=== PATIENT | female | born 1970 | race African-American/Black ===

== ENCOUNTER 2017-05-23 15:23 | Observation (INO) | payer MEDICARE ==
[2017-05-23 15:36] VITALS: BMI 38.0
--- NOTE | 2017-05-23 15:56 | PDOC ---
History of Present Illness - General History Source: Patient, Old Records Exam Limitations: No Limitations - History of Present Illness Initial Comments: 05/23/17 16:05 The patient is a 46 year old female, with a significant past medical history of anemia, fibroids, asthma, diabetes and HTN, who presents to the emergency department with chest pain, shortness of breath, nausea and generalized weakness for the last couple of days. She describes her chest pain as ranging from mild to moderate, without radiation or modifying factors. She notes that she feels drained and drowzy. She states that she has not taken her blood pressure medication today. The patient denies headache and dizziness. Denies fever, chills, vomit, diarrhea and constipation. Denies dysuria, frequency, urgency and hematuria. Allergies: Penicillin Past surgical history: None reported Social history: Alcohol use. No tobacco or drug use reported <Addy Wilks - Last Filed: 05/23/17 16:11> <Deisy Garcias - Last Filed: 05/23/17 18:18> - General Chief Complaint: Chest Pain Stated Complaint: CHEST PAIN, BLOOD SUGAR PROBLEM Past History <Addy Wilks - Last Filed: 05/23/17 16:11> - Past Medical History Anemia: Yes (FIBROIDS) Asthma: Yes Cancer: No Cardiac Disorders: No CVA: No COPD: No CHF: No Dementia: No Diabetes: Yes GI Disorders: No Disorders: No HTN: Yes Hypercholesterolemia: No Liver Disease: No Seizures: No Thyroid Disease: No - Immunization History Immunization Up to Date: Yes - Suicide/Smoking/Psychosocial Hx Smoking Status: No Smoking History: Never smoked Have you smoked in the past 12 months: No Number of Cigarettes Smoked Daily: 0 Hx Alcohol Use: No Drug/Substance Use Hx: No Substance Use Type: Alcohol Hx Substance Use Treatment: No <Deisy Garcias - Last Filed: 05/23/17 18:18> - Past Medical History Allergies/Adverse Reactions: Allergies Allergy/AdvReac Type Severity Reaction Status Date / Time Penicillins Allergy Rash Verified 05/23/17 15:32 Home Medications: Ambulatory Orders Albuterol Sulfate [Proair Hfa] 1 inh PO DAILY 01/15/13 Budesonide/Formoterol Fumarate [Symbicort 160-4.5 Mcg Inhaler] 10.2 gm IH DAILY 01/15/13 Hydralazine HCl 75 mg PO BID 01/15/13 Insulin Lispro [Humalog] 60 unit SQ BID 01/15/13 Montelukast Na [Singulair] 10 mg PO HS 01/15/13 Nifedipine [Procardia Xl] 90 mg PO DAILY 01/15/13 Aspirin [Aspirin EC] 1 tab PO DAILY 04/14/16 Atorvastatin Ca [Lipitor] 20 mg PO DAILY 04/14/16 Furosemide [Lasix -] 20 mg PO BID 04/14/16 Losartan Potassium [Cozaar] 100 mg PO DAILY 04/14/16 Metoprolol Succinate [Toprol Xl] 100 mg PO DAILY 04/14/16 Sitagliptin Phos/Metformin HCl [Janumet 50-1,000 mg Tablet] 1 each PO BID Review of Systems - Review of Systems Able to Perform ROS?: Yes Comments:: 05/23/17 16:05 GENERAL/CONSTITUTIONAL: (+) Generalized weakness. No fever or chills. HEAD, EYES, EARS, NOSE AND THROAT: No change in vision. No ear pain or discharge. No sore throat.- CARDIOVASCULAR: (+) Chest pain and shortness of breath RESPIRATORY: No cough, wheezing, or hemoptysis. GASTROINTESTINAL: (+) Nausea. No vomiting, diarrhea or constipation. GENITOURINARY: No dysuria, frequency, or change in urination. MUSCULOSKELETAL: No joint or muscle swelling or pain. No neck or back pain. SKIN: No rash NEUROLOGIC: No headache, vertigo, loss of consciousness, or change in strength/ sensation. ENDOCRINE: No increased thirst. No abnormal weight change HEMATOLOGIC/LYMPHATIC: No anemia, easy bleeding, or history of blood clots. ALLERGIC/IMMUNOLOGIC: No hives or skin allergy. <Addy Wilks - Last Filed: 05/23/17 16:11> *Physical Exam - Vital Signs Last Vital Signs Temp Pulse Resp BP Pulse Ox 98.1 F 80 20 208/108 99 05/23/17 15:33 05/23/17 15:33 05/23/17 15:33 05/23/17 15:33 05/23/17 15:33 - Physical Exam Comments: 05/23/17 16:06 GENERAL: Awake, alert, and fully oriented, in no acute distress. (+) Obese. HEAD: No signs of trauma, normocephalic, atraumatic EYES: PERRLA, EOMI, sclera anicteric, conjunctiva clear ENT: Auricles normal inspection, hearing grossly normal, nares patent, oropharynx clear without exudates. Moist mucosa NECK: Normal ROM, supple, no lymphadenopathy, JVD, or masses LUNGS: No distress, speaks full sentences, clear to auscultation bilaterally HEART: Regular rate and rhythm, normal S1 and S2, no murmurs, rubs or gallops, peripheral pulses normal and equal bilaterally. ABDOMEN: Soft, nontender, normoactive bowel sounds. Non distended. No guarding , no rebound. No masses EXTREMITIES : Normal inspection, Normal range of motion, no edema. No clubbing or cyanosis. NEUROLOGICAL: Cranial nerves II through XII grossly intact. AO X 3. Normal speech, normal gait, no focal sensorimotor deficits SKIN: Warm, Dry, normal turgor, no rashes or lesions noted. <Addy Wilks - Last Filed: 05/23/17 16:11> - Vital Signs Last Vital Signs Temp Pulse Resp BP Pulse Ox 98.1 F 80 20 208/108 99 05/23/17 15:33 05/23/17 15:33 05/23/17 15:33 05/23/17 15:33 05/23/17 15:33 <Deisy Garcias - Last Filed: 05/23/17 18:18> ED Treatment Course - LABORATORY CBC & Chemistry Diagram: 05/23/17 16:18 05/23/17 16:18 <Deisy Garcias - Last Filed: 05/23/17 18:18> Medical Decision Making - Medical Decision Making 05/23/17 18:06 Pt presents to the ED complaining of a two day history of non specific malaise and substernal, intermittent, non exertional chest pain. Multiple risk factors for cardiovascular disease--HEART score of 4. Initial concern for anemia or hypothyroidism, but labs are negative. Troponin is negative. Will admit to medicine for rule out ACS. <Deisy Garcias - Last Filed: 05/23/17 18:18> *DC/Admit/Observation/Transfer - Attestations Scribe Attestion: 05/23/17 16:06 Documentation prepared by Addy Wilks, acting as manager medical device for Deisy Garcias MD <Addy Wilks - Last Filed: 05/23/17 16:11> - Discharge Dispostion Admit: Yes Decision to Admit order Date/Time: 05/23/17 18:18 <Deisy Garcias - Last Filed: 05/23/17 18:18> Diagnosis at time of Disposition: Chest pain Qualifiers: Chest pain type: other chest pain Qualified Code(s): R07.89 - Other chest pain ; R07.8 - Other chest pain - Discharge Dispostion Disposition: HOME Condition at time of disposition: Good - Referrals Referrals: Florentino Sauceda MD [Primary Care Provider] -
[2017-05-23] MEDS ORDERED: NIFEdipine E.R. 90 MG TABLET (FP) PO ONE (16:20)
[2017-05-23 16:35] LABS: BASOPHIL 0.5 % (0-2.0); EOSINOPHIL 0.7 % (0-4.5); MCH 25.3 pg (25.7-33.7); MCHC 33.2 g/dl (32.0-36.0); MEAN CELL VOLUME 76.3 fl (80-96); MEAN PLT VOLUME 8.4 fl (7.5-11.1); NEUTROPHILS 76.2 % (42.8-82.8); PLATELET COUNT 308 K/MM3 (134-434); RDW 17.1 % (11.6-15.6); WHITE BLOOD COUNT 6.2 K/mm3 (4.0-10.0)
[2017-05-23 16:39] LABS: URINE APPEARANCE SLCLOUDY; URINE BILIRUBIN NEGATIVE (NEGATIVE); URINE BLOOD 3+ (NEGATIVE); URINE COLOR YELLOW; URINE GLUCOSE (UA) 3+ (NEGATIVE); URINE KETONE NEGATIVE (NEGATIVE); URINE LEUK ESTERASE NEGATIVE (NEGATIVE); URINE NITRITE NEGATIVE (NEGATIVE); URINE UROBILINOGEN NEGATIVE mg/dL (0.2-1.0)
[2017-05-23 16:42] LABS: URINE PROTEIN 2+ (NEGATIVE)
[2017-05-23 17:02] LABS: URINE RBC 1054 /hpf (0-3); URINE WBC 8 /hpf (3-5)
[2017-05-23 17:19] LABS: ALBUMIN 3.5 g/dl (3.4-5.0); ANION GAP 7 (8-16); BILIRUBIN,TOTAL 0.7 mg/dL (0.2-1.0); CALCIUM 8.8 mg/dL (8.5-10.1); CO2 28 mmol/L (21-32); CREATININE 1.2 mg/dL (0.55-1.02); GLUCOSE,RANDOM 247 mg/dL (74-106); SGOT/AST 13 U/L (15-37); SGPT/ALT 23 U/L (12-78); TOT PROT 8.1 g/dl (6.4-8.2)
[2017-05-23 17:28] LABS: ALK PHOS 111 U/L (45-117); CPK 124 IU/L (26-192); THYROID STIMULATING HORMONE 0.57 uIU/ml (0.358-3.74); TROPONIN I 0.02 ng/ml (0.00-0.05)
[2017-05-23] MEDS ORDERED: ASPIRIN 81 MG CHEWABLE TABLETS PO ONE (17:50)
[2017-05-23] MEDS ORDERED: ASPIRIN 81 MG CHEWABLE TABLETS ONE (18:04)
[2017-05-23] MEDS ORDERED: hydrALAZINE HCL 20 MG/ML VIAL IVPUSH ONE (18:56)
[2017-05-23] MEDS ORDERED: hydrALAZINE HCL 20 MG/ML VIAL ONE (19:00)
[2017-05-23] MEDS ORDERED: POTASSIUM CHLORIDE TABS 20 MEQ TABLET.ER (FP) PO ONE ×2 (20:14→20:20)
[2017-05-23] MEDS ORDERED: NITROGLYCERIN SUBLINGUAL 1/150 0.4 MG TAB SL ONE (20:26)
[2017-05-23] MEDS ORDERED: NITROGLYCERIN SUBLINGUAL 1/150 0.4 MG TAB ONE (20:30)
[2017-05-23] MEDS ORDERED: NITROGLYCERIN 2% OINTMENT - 1GM PACKET TD ONE ×2 (21:11)
--- NOTE | 2017-05-24 02:36 | HP ---
Admitting History and Physical - Admission History of Present Illness: Pt is a 46 y/o morbidly obese female w/ PMH significant for anemia, fibroids, asthma, diabetes and HTN. Pt presented to the ER w/ multiple complaints including chest pain wc was substernal and nonradiating. She has been having this chest pain for the past 4-5 days and it is intermittent and only lasting mimnutes. Pt also c/o SOB and just not feeling right for the past week. This has been associated w/ nausea and generalized weakness. She reports feeling drowsy. Pt did not take any of her antihypertensives today. History Source: Patient, Medical Record - Past Medical History Cardiovascular: Yes: HTN Pulmonary: Yes: Asthma, Sleep Apnea ...LMP: 03/20/16 Heme/Onc: Yes: Anemia Endocrine: Yes: Diabetes Mellitus - Past Surgical History Past Surgical History: Yes: None - Smoking History Smoking history: Never smoked Have you smoked in the past 12 months: No Aproximately how many cigarettes per day: 0 - Alcohol/Substance Use Hx Alcohol Use: No Home Medications - Allergies Allergies/Adverse Reactions: Allergies Allergy/AdvReac Type Severity Reaction Status Date / Time Penicillins Allergy Rash Verified 05/23/17 15:32 - Home Medications Home Medications: Ambulatory Orders Albuterol Sulfate [Proair Hfa] 1 inh PO DAILY 01/15/13 Budesonide/Formoterol Fumarate [Symbicort 160-4.5 Mcg Inhaler] 10.2 gm IH DAILY 01/15/13 Hydralazine HCl 75 mg PO BID 01/15/13 Montelukast Na [Singulair] 10 mg PO HS 01/15/13 Nifedipine [Procardia Xl] 90 mg PO DAILY 01/15/13 Aspirin [Aspirin EC] 1 tab PO DAILY 04/14/16 Atorvastatin Ca [Lipitor] 20 mg PO DAILY 04/14/16 Furosemide [Lasix -] 20 mg PO BID 04/14/16 Losartan Potassium [Cozaar] 100 mg PO DAILY 04/14/16 Metoprolol Succinate [Toprol Xl] 100 mg PO DAILY 04/14/16 Sitagliptin Phos/Metformin HCl [Janumet 50-1,000 mg Tablet] 1 each PO BID Baclofen 10 mg PO DAILY 05/24/17 Medroxyprogesterone Acetate 10 mg PO DAILY 05/24/17 Novolog Mix 70-30 Flexpen Syrn 30 units SQ BIDAC 05/24/17 Family Disease History - Family Disease History Family History: Unremarkable Review of Systems - Review of Systems Constitutional: reports: Lethargy Eyes: reports: No Symptoms HENT: reports: No Symptoms Neck: reports: No Symptoms Cardiovascular: reports: Chest Pain, Shortness of Breath Respiratory: reports: SOB Gastrointestinal: reports: Nausea Genitourinary: reports: No Symptoms Physical Examination Vital Signs: Vital Signs Temperature 99.1 F 05/24/17 02:15 Pulse Rate 92 H 05/24/17 02:15 Respiratory Rate 20 05/24/17 02:15 Blood Pressure 165/89 05/24/17 02:15 O2 Sat by Pulse Oximetry (%) 100 05/23/17 18:56 Constitutional: Yes: Well Nourished Eyes: Yes: WNL HENT: Yes: WNL Neck: Yes: WNL, Supple Cardiovascular: Yes: WNL, Regular Rate and Rhythm, Murmur Respiratory: Yes: WNL Gastrointestinal: Yes: WNL, Normal Bowel Sounds, Soft, Abdomen, Obese Extremities: Yes: WNL Edema: No Problem List - Problems (1) Chest pain Assessment/Plan: Check echo Serial cpk/troponin to r/o ACS As per cardio Code(s): R07.9 - CHEST PAIN, UNSPECIFIED Qualifiers: Chest pain type: other chest pain Qualified Code(s): R07.89 - Other chest pain; R07.89 - Other chest pain; R07.8 - Other chest pain (2) HTN (hypertension) Assessment/Plan: Accelerated HTN Cont hydralzaine/losartan/lasix/procardia/toprol Check echo W/U for TRACEE/pheochromacytoma as outpt Code(s): I10 - ESSENTIAL (PRIMARY) HYPERTENSION (3) HLD (hyperlipidemia) Assessment/Plan: Cont lipitor Code(s): E78.5 - HYPERLIPIDEMIA, UNSPECIFIED (4) Anemia Assessment/Plan: Monitor H/H Code(s): D64.9 - ANEMIA, UNSPECIFIED (5) Diabetes Assessment/Plan: Cont metformin/januvia Code(s): E11.9 - TYPE 2 DIABETES MELLITUS WITHOUT COMPLICATIONS (6) Asthma Assessment/Plan: Cont symbicort/singulair Code(s): J45.909 - UNSPECIFIED ASTHMA, UNCOMPLICATED
[2017-05-24] MEDS: ACETAMINOPHEN 325 MG TABLET (FP) PO PRN ×2 (02:46→17:28)
[2017-05-24] MEDS: FUROSEMIDE 20 MG TABLET (FP) PO SCH ×2 (06:08→13:59)
[2017-05-24] MEDS: metFORMIN HCL 500 MG TABLET (FP) PO SCH ×2 (06:09→17:26)
[2017-05-24] MEDS: sitaGLIPtin PHOSPHATE 50 MG TABLET PO SCH ×2 (06:09→17:27)
[2017-05-24] MEDS ORDERED: INSULIN (NOVOLOG) ASPART 100 UNITS/ML 10ML VIAL SQ SCH (07:00)
--- NOTE | 2017-05-24 07:00 | CON.CARD ---
Cardiology Consult (text) - Consultation Consultation Note: Cardiology Consult 46F with chronic difficult to control HTN (- secondary work up for TRACEE), chronic diastolic CHF, LAYNE, DM presents to ER with 1 week of fatigue and weakness and substernal sharp CP intermittently, non-exertional. Denies SOB. No edema or PND. Started feeling tired and weak around one week ago, last Thursday. Thursday stopped taking all he BP meds due to fatigue and then began having headaches and chest discomfort. No fever, chills. Denies cough. Over last 6 months has been excellent w/ outpatient f/u and BP med compliance. PMH: as above ALL: PCN MEDS at home: Novolog [id number] TID ASA 81mf daily Invokana Toprol XL 100mg daily Lasix 20mg daily Lipitor 20mg daily Procardia Xl 90mg daily FH: Non-contrib SH: Nonsmoker EXAM: Alert, oriented Nonfocal neuro exam CV: S1,2 RRR Chest : CTA b/l Abd: soft, no bruits Ext: No edema DATA: ECG: NSR 80bpm, QT 485ms TELE: NSR CXR: Cardiomegaly , no infiltrates Head CT and echo pending Selected Entries 05/23/17 05/24/17 21:35 06:43 Temperature 99.8 F H Pulse Rate 84 Blood Pressure 157/85 Blood Pressure 191/97 [Right Arm] LABS: Laboratory Tests 05/23/17 05/23/17 05/24/17 16:18 16:40 05:25 WBC 7.7 Hgb 13.2 Plt Count 321 Sodium Potassium Creatinine AST ALT Alkaline Phosphatase TSH 0.57 Acetone, Qual Negative L 05/24/17 05:25 WBC Hgb Plt Count Sodium 135 L Potassium 3.4 L Creatinine 0.9 D AST 10 L D ALT 20 Alkaline Phosphatase 102 TSH Acetone, Qual IMP: Chronic HTN, now with accelerated HTN in setting one week med non-adherence Hypertensive heart dz Atypical CP REC: 1. Resume usual home meds 2. Echo 3. Replete electrolytes 4. Outpatient pheo eval 5. Will review office records to see when last ischemic eval was performed, if not recently would perform prior to d/c.
[2017-05-24 07:09] LABS: BASOPHIL 0.4 % (0-2.0); EOSINOPHIL 0.9 % (0-4.5); MCH 25.3 pg (25.7-33.7); MCHC 33.5 g/dl (32.0-36.0); MEAN CELL VOLUME 75.6 fl (80-96); MEAN PLT VOLUME 8.4 fl (7.5-11.1); NEUTROPHILS 72.4 % (42.8-82.8); PLATELET COUNT 321 K/MM3 (134-434); RDW 17.5 % (11.6-15.6); WHITE BLOOD COUNT 7.7 K/mm3 (4.0-10.0)
[2017-05-24 07:37] LABS: ALBUMIN 3.4 g/dl (3.4-5.0); ALK PHOS 102 U/L (45-117); ANION GAP 8 (8-16); BILIRUBIN,TOTAL 0.6 mg/dL (0.2-1.0); CALCIUM 8.9 mg/dL (8.5-10.1); CO2 27 mmol/L (21-32); CREATININE 0.9 mg/dL (0.55-1.02); GLUCOSE,RANDOM 216 mg/dL (74-106); SGOT/AST 10 U/L (15-37); SGPT/ALT 20 U/L (12-78); TOT PROT 7.5 g/dl (6.4-8.2)
[2017-05-24 09:16] LABS: CPK 100 IU/L (26-192); TROPONIN I 0.02 ng/ml (0.00-0.05)
[2017-05-24] MEDS: hydrALAZINE HCL 25 MG TABLET (FP) PO SCH ×2 (09:22→21:28)
[2017-05-24] MEDS: HEPARIN NA (PORCINE) 5,000 UNITS/ML 1ML VIAL SQ SCH ×2 (09:23→21:26)
[2017-05-24] MEDS: ASPIRIN COATED 81 MG TABLET.EC PO SCH (09:23)
[2017-05-24] MEDS: LOSARTAN POTASSIUM 50 MG TABLET (FP) PO SCH (09:23)
[2017-05-24] MEDS: METOPROLOL SUCCINATE 100 MG TAB.SR.24H (FP) PO SCH (09:23)
[2017-05-24] MEDS: NIFEdipine E.R. 90 MG TABLET (FP) PO SCH (09:23)
[2017-05-24] MEDS: BUDESONIDE/FORMETEROL FUMARATE 160/4.5 mcg INHALER IH SCH (09:23)
[2017-05-24] MEDS ORDERED: POTASSIUM CHLORIDE TABS 20 MEQ TABLET.ER (FP) PO ONE (09:30)
[2017-05-24] MEDS ORDERED: ATORVASTATIN CA 20 MG TABLET (FP) PO SCH (10:00)
[2017-05-24] MEDS ORDERED: hydrALAZINE HCL 25 MG TABLET (FP) PO SCH (10:00)
[2017-05-24] MEDS ORDERED: PATIENT'S OWN MEDICATION (NON-FORMULARY) (Sitagliptin Phos/Metformin Hcl [Janumet 50-1,000 PO SCH (10:00)
--- NOTE | 2017-05-24 20:40 | EKG ---
Test Reason : Blood Pressure : / mmHG Vent. Rate : 086 BPM Atrial Rate : 086 BPM P-R Int : 160 ms QRS Dur : 090 ms QT Int : 398 ms P-R-T Axes : 059 050 012 degrees QTc Int : 476 ms NORMAL SINUS RHYTHM POSSIBLE LEFT ATRIAL ENLARGEMENT PROLONGED QT BORDERLINE ECG WHEN COMPARED WITH ECG OF 23-MAY-2017 15:35, NO SIGNIFICANT CHANGE WAS FOUND Confirmed by JAMIE BARRERA MD ([id number]) on 05/24/2017 8:40:02 PM Referred By: NATALIA TERESA Confirmed By:JAMIE BARRERA MD
[2017-05-24] MEDS: MONTELUKAST NA 10 MG TABLET PO SCH (21:27)
[2017-05-24] MEDS: ATORVASTATIN CA 20 MG TABLET (FP) PO SCH (21:27)
[2017-05-25] MEDS ORDERED: POTASSIUM CHLORIDE TABS 20 MEQ TABLET.ER (FP) PO ONE (00:35)
[2017-05-25] MEDS: metFORMIN HCL 500 MG TABLET (FP) PO SCH ×2 (06:07→17:36)
[2017-05-25] MEDS: FUROSEMIDE 20 MG TABLET (FP) PO SCH ×2 (06:08→14:36)
[2017-05-25] MEDS: sitaGLIPtin PHOSPHATE 50 MG TABLET PO SCH ×2 (06:19→17:36)
[2017-05-25 06:55] LABS: BASOPHIL 0.8 % (0-2.0); EOSINOPHIL 1.9 % (0-4.5); MCH 25.2 pg (25.7-33.7); MCHC 33.2 g/dl (32.0-36.0); MEAN PLT VOLUME 8.6 fl (7.5-11.1); NEUTROPHILS 60.7 % (42.8-82.8); PLATELET COUNT 361 K/MM3 (134-434); RDW 17.4 % (11.6-15.6); WHITE BLOOD COUNT 6.8 K/mm3 (4.0-10.0)
[2017-05-25 07:02] LABS: ALBUMIN 3.3 g/dl (3.4-5.0); ALK PHOS 101 U/L (45-117); ANION GAP 8 (8-16); BILIRUBIN,TOTAL 0.5 mg/dL (0.2-1.0); CO2 28 mmol/L (21-32); CREATININE 1.3 mg/dL (0.55-1.02); GLUCOSE,RANDOM 185 mg/dL (74-106); SGOT/AST 12 U/L (15-37); SGPT/ALT 21 U/L (12-78); TOT PROT 7.5 g/dl (6.4-8.2)
[2017-05-25 09:03] LABS: CHOLESTEROL 202 mg/dl
[2017-05-25] MEDS: hydrALAZINE HCL 25 MG TABLET (FP) PO SCH ×2 (09:26→22:18)
[2017-05-25] MEDS: METOPROLOL SUCCINATE 100 MG TAB.SR.24H (FP) PO SCH ×2 (09:26→14:35)
[2017-05-25] MEDS: NIFEdipine E.R. 90 MG TABLET (FP) PO SCH ×2 (09:26→14:35)
[2017-05-25] MEDS: HEPARIN NA (PORCINE) 5,000 UNITS/ML 1ML VIAL SQ SCH ×2 (09:26→22:18)
[2017-05-25] MEDS: LOSARTAN POTASSIUM 50 MG TABLET (FP) PO SCH ×2 (09:26→14:36)
[2017-05-25] MEDS: ASPIRIN COATED 81 MG TABLET.EC PO SCH ×2 (09:26→14:36)
[2017-05-25] MEDS: BUDESONIDE/FORMETEROL FUMARATE 160/4.5 mcg INHALER IH SCH (09:26)
--- NOTE | 2017-05-25 09:57 | PN ---
Progress Note, Physician History of Present Illness: seen and examined today in nad. no overnight events. no new complaints. - Current Medication List Current Medications: Active Medications Acetaminophen (Tylenol -) 650 mg PO Q6H PRN PRN Reason: PAIN Last Admin: 05/24/17 17:28 Dose: 650 mg Aspirin (Ecotrin -) 81 mg PO DAILY [facility] Last Admin: 05/25/17 09:26 Dose: Not Given Atorvastatin Calcium (Lipitor -) 20 mg PO HS [facility] Last Admin: 05/24/17 21:27 Dose: 20 mg Budesonide/Formoterol Fumarate (Symbicort 160/4.5mcg -) 1 puff IH DAILY [facility] Last Admin: 05/25/17 09:26 Dose: Not Given Furosemide (Lasix -) 20 mg PO BIDLASIX [facility] Last Admin: 05/25/17 06:08 Dose: Not Given Heparin Sodium (Porcine) (Heparin -) 5,000 unit SQ BID [facility] Last Admin: 05/25/17 09:26 Dose: Not Given Hydralazine HCl (Apresoline -) 75 mg PO BID [facility] Last Admin: 05/25/17 09:26 Dose: Not Given Dipyridamole 50 mg/ Dextrose 50 mls @ 750 mls/hr IVPB ONCE ONE Stop: 05/25/17 10:03 Losartan Potassium (Cozaar -) 100 mg PO DAILY [facility] Last Admin: 05/25/17 09:26 Dose: Not Given Metformin HCl (Glucophage -) 1,000 mg PO BID@0700,1630 [facility] Last Admin: 05/25/17 06:07 Dose: Not Given Metoprolol Succinate (Toprol Xl -) 100 mg PO DAILY [facility] Last Admin: 05/25/17 09:26 Dose: Not Given Montelukast Sodium (Singulair -) 10 mg PO HS [facility] Last Admin: 05/24/17 21:27 Dose: 10 mg Nifedipine (Procardia Xl -) 90 mg PO DAILY [facility] Last Admin: 05/25/17 09:26 Dose: Not Given Sitagliptin Phosphate (Januvia -) 50 mg PO BID@0700,1630 [facility] Last Admin: 05/25/17 06:19 Dose: Not Given - Objective Vital Signs: Vital Signs Temperature 98.3 F 05/25/17 05:56 Pulse Rate 82 05/25/17 05:56 Respiratory Rate 20 05/25/17 05:56 Blood Pressure 151/72 05/25/17 05:56 O2 Sat by Pulse Oximetry (%) 97 05/25/17 02:00 Constitutional: Yes: Well Nourished, No Distress, Calm Eyes: Yes: WNL, Conjunctiva Clear, EOM Intact, PERRL HENT: Yes: WNL, Atraumatic, Normocephalic Neck: Yes: WNL, Supple, Trachea Midline Cardiovascular: Yes: WNL, Regular Rate and Rhythm, S1, S2. No: Bradycardia, Tachycardia, Pulse Irregular, Bruit, JVD, Gallop, Murmur, Rub, S3, S4, Varicosities Respiratory: Yes: WNL, Regular, CTA Bilaterally. No: Rales, Rhonchi, Wheezes Gastrointestinal: Yes: WNL, Normal Bowel Sounds, Soft. No: Distention, Tenderness Musculoskeletal: Yes: WNL Extremities: Yes: WNL Edema: No Peripheral Pulses WNL: Yes Peripheral Pulses: Left Doralis Pedis: 2+, Right Dorsalis Pedis: 2+ Integumentary: Yes: WNL Neurological: Yes: Alert, Oriented Psychiatric: Yes: Alert, Oriented Labs: CBC, BMP 05/25/17 06:20 05/25/17 06:20 - ....Imaging Chest X-ray: Report Reviewed, Image Reviewed EKG: Report Reviewed, Image Reviewed Other: Report Reviewed, Image Reviewed (tele-nsr, sinus tach, no sig arrhythmias ) Assessment/Plan Chronic HTN, severely uncontrolled on admission in setting of one week of medication non-adherence Hypertensive heart dz Atypical CP Hypokalemia Prolonged QTc REC: -Blood pressure improved after resuming home meds, still above senior living goal but adequate for now -Cont home HTN meds and plan for further evaluation and adjustment as needed -F/up echo today -f/up repeat EKG for QTc after K repleted -f/up nuclear stress test today -outpatient evaluation for secondary causes of HTN -If BP remains adequately controlled and there are no sig abnl on echo or stress test then pt would be acceptable for discharge home this afternoon with close outpatient f/up ideally this week
[2017-05-25] MEDS ORDERED: DIPYRIDAMOLE STRESS TEST 50 MG in DEXTROSE 5%-WATER - 40 ML IVPB ONE (10:00)
[2017-05-25] MEDS ORDERED: AMINOPHYLLINE 250 MG/10 ML VIAL IVPUSH ONE ×2 (13:34→15:15)
--- NOTE | 2017-05-25 20:00 | PN ---
Progress Note, Physician - Current Medication List Current Medications: Active Medications Acetaminophen (Tylenol -) 650 mg PO Q6H PRN PRN Reason: PAIN Last Admin: 05/24/17 17:28 Dose: 650 mg Aspirin (Ecotrin -) 81 mg PO DAILY [facility] Last Admin: 05/25/17 14:36 Dose: 81 mg Atorvastatin Calcium (Lipitor -) 20 mg PO HS [facility] Last Admin: 05/24/17 21:27 Dose: 20 mg Budesonide/Formoterol Fumarate (Symbicort 160/4.5mcg -) 1 puff IH DAILY [facility] Last Admin: 05/25/17 09:26 Dose: Not Given Furosemide (Lasix -) 20 mg PO BIDLASIX [facility] Last Admin: 05/25/17 14:36 Dose: 20 mg Heparin Sodium (Porcine) (Heparin -) 5,000 unit SQ BID [facility] Last Admin: 05/25/17 09:26 Dose: Not Given Hydralazine HCl (Apresoline -) 75 mg PO BID [facility] Last Admin: 05/25/17 09:26 Dose: Not Given Losartan Potassium (Cozaar -) 100 mg PO DAILY [facility] Last Admin: 05/25/17 14:36 Dose: 100 mg Metformin HCl (Glucophage -) 1,000 mg PO BID@0700,1630 [facility] Last Admin: 05/25/17 17:36 Dose: 1,000 mg Metoprolol Succinate (Toprol Xl -) 100 mg PO DAILY [facility] Last Admin: 05/25/17 14:35 Dose: 100 mg Montelukast Sodium (Singulair -) 10 mg PO HS [facility] Last Admin: 05/24/17 21:27 Dose: 10 mg Nifedipine (Procardia Xl -) 90 mg PO DAILY [facility] Last Admin: 05/25/17 14:35 Dose: 90 mg Sitagliptin Phosphate (Januvia -) 50 mg PO BID@0700,1630 [facility] Last Admin: 05/25/17 17:36 Dose: 50 mg - Objective Vital Signs: Vital Signs Temperature 97.8 F 05/25/17 18:00 Pulse Rate 80 05/25/17 18:00 Respiratory Rate 20 05/25/17 18:00 Blood Pressure 158/87 05/25/17 18:00 O2 Sat by Pulse Oximetry (%) 100 05/25/17 19:52 Constitutional: Yes: Well Nourished Neck: Yes: WNL, Supple Cardiovascular: Yes: WNL, Regular Rate and Rhythm, Murmur Respiratory: Yes: WNL, Regular, CTA Bilaterally Gastrointestinal: Yes: WNL, Normal Bowel Sounds, Soft, Abdomen, Obese Extremities: Yes: WNL Edema: No Labs: CBC, BMP 05/25/17 06:20 05/25/17 06:20 Problem List - Problems (1) Chest pain Assessment/Plan: ?abnormal stress test Await cardio recommendations Cont asa Monitor BP Code(s): R07.9 - CHEST PAIN, UNSPECIFIED Qualifiers: Chest pain type: other chest pain Qualified Code(s): R07.89 - Other chest pain; R07.89 - Other chest pain; R07.8 - Other chest pain (2) HTN (hypertension) Assessment/Plan: Accelerated HTN Cont hydralzaine/losartan/lasix/procardia/toprol BP slightly elevated Code(s): I10 - ESSENTIAL (PRIMARY) HYPERTENSION (3) ARF (acute renal failure) Assessment/Plan: ?Due to metfomrin Repeat labs in am DC metformin and monitor Renal US Renal consult Code(s): N17.9 - ACUTE KIDNEY FAILURE, UNSPECIFIED (4) HLD (hyperlipidemia) Assessment/Plan: Cont lipitor Code(s): E78.5 - HYPERLIPIDEMIA, UNSPECIFIED (5) Anemia Assessment/Plan: Monitor H/H Code(s): D64.9 - ANEMIA, UNSPECIFIED (6) Diabetes Assessment/Plan: Cont januvia Will dc metformin due to elevated creatinine Code(s): E11.9 - TYPE 2 DIABETES MELLITUS WITHOUT COMPLICATIONS (7) Asthma Code(s): J45.909 - UNSPECIFIED ASTHMA, UNCOMPLICATED
[2017-05-25] MEDS: MONTELUKAST NA 10 MG TABLET PO SCH (22:18)
[2017-05-25] MEDS: ATORVASTATIN CA 20 MG TABLET (FP) PO SCH (22:18)
[2017-05-26] MEDS: sitaGLIPtin PHOSPHATE 50 MG TABLET PO SCH (06:09)
[2017-05-26] MEDS: FUROSEMIDE 20 MG TABLET (FP) PO SCH ×2 (06:09→13:26)
--- NOTE | 2017-05-26 07:16 | PN ---
Progress Note, Physician Chief Complaint: Stress test w/ anterolateral ischemia TELE: NSR - Current Medication List Current Medications: Active Medications Acetaminophen (Tylenol -) 650 mg PO Q6H PRN PRN Reason: PAIN Last Admin: 05/24/17 17:28 Dose: 650 mg Aspirin (Ecotrin -) 81 mg PO DAILY [facility] Last Admin: 05/25/17 14:36 Dose: 81 mg Atorvastatin Calcium (Lipitor -) 20 mg PO HS [facility] Last Admin: 05/25/17 22:18 Dose: 20 mg Budesonide/Formoterol Fumarate (Symbicort 160/4.5mcg -) 1 puff IH DAILY [facility] Last Admin: 05/25/17 09:26 Dose: Not Given Furosemide (Lasix -) 20 mg PO BIDLASIX [facility] Last Admin: 05/26/17 06:09 Dose: 20 mg Heparin Sodium (Porcine) (Heparin -) 5,000 unit SQ BID [facility] Last Admin: 05/25/17 22:18 Dose: 5,000 unit Hydralazine HCl (Apresoline -) 75 mg PO BID [facility] Last Admin: 05/25/17 22:18 Dose: 75 mg Losartan Potassium (Cozaar -) 100 mg PO DAILY [facility] Last Admin: 05/25/17 14:36 Dose: 100 mg Metoprolol Succinate (Toprol Xl -) 100 mg PO DAILY [facility] Last Admin: 05/25/17 14:35 Dose: 100 mg Montelukast Sodium (Singulair -) 10 mg PO HS [facility] Last Admin: 05/25/17 22:18 Dose: 10 mg Nifedipine (Procardia Xl -) 90 mg PO DAILY [facility] Last Admin: 05/25/17 14:35 Dose: 90 mg Sitagliptin Phosphate (Januvia -) 50 mg PO BID@0700,1630 [facility] Last Admin: 05/26/17 06:09 Dose: 50 mg - Objective Vital Signs: Vital Signs Temperature 98.8 F 05/26/17 02:15 Pulse Rate 76 05/26/17 06:24 Respiratory Rate 20 05/26/17 06:24 Blood Pressure 157/78 05/26/17 06:24 O2 Sat by Pulse Oximetry (%) 100 05/25/17 19:52 Constitutional: Yes: No Distress Cardiovascular: Yes: Regular Rate and Rhythm Gastrointestinal: Yes: Soft Edema: No Neurological: Yes: Alert, Oriented Labs: CBC, BMP 05/25/17 06:20 05/25/17 06:20 - ....Imaging EKG: Image Reviewed Assessment/Plan Assessment/Plan Chronic HTN, severely uncontrolled on admission in setting of one week of medication non-adherence Hypertensive heart dz Atypical CP Hypokalemia Prolonged QTc REC: -Blood pressure improved after resuming home meds, still above alf goal but adequate for now -Cont home HTN meds and plan for further evaluation and adjustment as needed -Echo normal LV function, no aortic dilatation -No V arrhythmias on tele -abnl nuclear stress d/w patient: options of LHC vs medical Rx alone discussed at length. Patient states she had significant chest pain and has opted to undergo LHC for definitive cor assessment Will arrange transfer
--- NOTE | 2017-05-26 09:44 | EKG ---
Test Reason : Blood Pressure : / mmHG Vent. Rate : 080 BPM Atrial Rate : 080 BPM P-R Int : 160 ms QRS Dur : 086 ms QT Int : 420 ms P-R-T Axes : 051 027 019 degrees QTc Int : 484 ms NORMAL SINUS RHYTHM POSSIBLE LEFT ATRIAL ENLARGEMENT PROLONGED QT ABNORMAL ECG WHEN COMPARED WITH ECG OF 15-JAN-2013 08:18, NO SIGNIFICANT CHANGE WAS FOUND Confirmed by JANI JIMENEZ MD ([id number]) on 05/26/2017 9:44:23 AM Referred By: Confirmed By:JANI JIMENEZ MD
[2017-05-26] MEDS: hydrALAZINE HCL 25 MG TABLET (FP) PO SCH (10:05)
[2017-05-26] MEDS: LOSARTAN POTASSIUM 50 MG TABLET (FP) PO SCH (10:05)
[2017-05-26] MEDS: NIFEdipine E.R. 90 MG TABLET (FP) PO SCH (10:06)
[2017-05-26] MEDS: ASPIRIN COATED 81 MG TABLET.EC PO SCH (10:06)
[2017-05-26] MEDS: METOPROLOL SUCCINATE 100 MG TAB.SR.24H (FP) PO SCH (10:06)
[2017-05-26] MEDS: HEPARIN NA (PORCINE) 5,000 UNITS/ML 1ML VIAL SQ SCH (10:07)
[2017-05-26] MEDS: BUDESONIDE/FORMETEROL FUMARATE 160/4.5 mcg INHALER IH SCH (13:24)
[2017-05-26 14:23] VITALS: BP 151/90; PULSE 78; TEMP 98.6
--- NOTE | 2017-05-26 14:56 | CONSULT ---
Consult Consult Specialty:: Nephrology Reason for Consultation:: elevated creatinine - History of Present Illness Chief Complaint: Chest pain History of Present Illness: Pt is a 46 year old female with pmhx of HTN, anemia, fibroid, asthma and DM who presents to the ER with chest pain. She also complains of generalized weakness and shortness of breath. She was found to be hypertensive. I was called to evaluate her for elevated creatinine. She denies history of CKD. She denies nsaid use. She was found to have hematuria however she is having vaginal bleeding from fibroids. She had a stress test that was not normal and is being transferred to [facility] for further cardiac workup. She currently denies chest pain. - History Source History Provided By: Patient - Past Medical History Cardio/Vascular: Yes: HTN Pulmonary: Yes: Asthma, Sleep Apnea ...LMP: 03/20/16 Endocrine: Yes: Diabetes Mellitus - Past Surgical History Past Surgical History: Yes: None - Alcohol/Substance Use Hx Alcohol Use: No - Smoking History Smoking history: Never smoked Have you smoked in the past 12 months: No Aproximately how many cigarettes per day: 0 Home Medications - Allergies Allergies/Adverse Reactions: Allergies Allergy/AdvReac Type Severity Reaction Status Date / Time Penicillins Allergy Rash Verified 05/23/17 15:32 - Home Medications Home Medications: Ambulatory Orders Albuterol Sulfate [Proair Hfa] 1 inh PO DAILY 01/15/13 Budesonide/Formoterol Fumarate [Symbicort 160-4.5 Mcg Inhaler] 10.2 gm IH DAILY 01/15/13 Hydralazine HCl 75 mg PO BID 01/15/13 Montelukast Na [Singulair] 10 mg PO HS 01/15/13 Nifedipine [Procardia Xl] 90 mg PO DAILY 01/15/13 Aspirin [Aspirin EC] 1 tab PO DAILY 04/14/16 Atorvastatin Ca [Lipitor] 20 mg PO DAILY 04/14/16 Furosemide [Lasix -] 20 mg PO BID 04/14/16 Losartan Potassium [Cozaar] 100 mg PO DAILY 04/14/16 Metoprolol Succinate [Toprol Xl] 100 mg PO DAILY 04/14/16 Sitagliptin Phos/Metformin HCl [Janumet 50-1,000 mg Tablet] 1 each PO BID Baclofen 10 mg PO DAILY 05/24/17 Medroxyprogesterone Acetate 10 mg PO DAILY 05/24/17 Novolog Mix 70-30 Flexpen Syrn 30 units SQ BIDAC 05/24/17 Family Disease History - Family Disease History Family History: Denies Review of Systems - Review of Systems Constitutional: reports: Malaise Eyes: reports: No Symptoms HENT: reports: No Symptoms Neck: reports: No Symptoms Cardiovascular: reports: Chest Pain Respiratory: reports: SOB Gastrointestinal: reports: No Symptoms Genitourinary: reports: No Symptoms Musculoskeletal: reports: No Symptoms Integumentary: reports: No Symptoms Neurological: reports: No Symptoms Endocrine: reports: No Symptoms Hematology/Lymphatic: reports: No Symptoms Psychiatric: reports: No Symptoms Physical Exam Vital Signs: Vital Signs Temperature 98.6 F 05/26/17 10:00 Pulse Rate 78 05/26/17 10:00 Respiratory Rate 20 05/26/17 10:00 Blood Pressure 151/90 05/26/17 10:00 O2 Sat by Pulse Oximetry (%) 100 05/26/17 09:00 Constitutional: Yes: Calm Eyes: Yes: Conjunctiva Clear HENT: Yes: Atraumatic Neck: Yes: Supple Cardiovascular: Yes: S1, S2 Respiratory: Yes: CTA Bilaterally Gastrointestinal: Yes: Normal Bowel Sounds, Soft, Abdomen, Obese Renal/: Yes: WNL Extremities: Yes: WNL Edema: LLE: Trace, RLE: Trace Neurological: Yes: Oriented Psychiatric: Yes: Oriented Labs: CBC, BMP 05/25/17 06:20 05/25/17 06:20 Laboratory Tests 01/22/12 01/23/12 01/25/12 06:00 06:00 06:00 WBC Hgb Sodium Potassium Chloride Carbon Dioxide Anion Gap Creatinine 0.9 1.2 D 1.2 BUN Urine Color Urine Appearance Urine pH Ur Specific [employer] Urine Protein Urine Glucose (UA) Urine Ketones Urine Blood Urine Nitrite Urine Bilirubin Urine Urobilinogen 01/26/12 08/24/12 01/15/13 10:00 07:59 08:45 WBC Hgb Sodium Potassium Chloride Carbon Dioxide Anion Gap Creatinine 1.4 H 0.8 D 0.8 BUN Urine Color Urine Appearance Urine pH Ur Specific [employer] Urine Protein Urine Glucose (UA) Urine Ketones Urine Blood Urine Nitrite Urine Bilirubin Urine Urobilinogen 05/23/17 05/23/17 05/23/17 16:18 16:18 16:18 WBC Hgb 13.6 D Sodium Potassium Chloride Carbon Dioxide Anion Gap Creatinine 1.2 H D BUN Urine Color Yellow Urine Appearance Slcloudy Urine pH 8.0 D Ur Specific [employer] 1.020 Urine Protein 2+ H Urine Glucose (UA) 3+ H Urine Ketones Negative Urine Blood 3+ H Urine Nitrite Negative Urine Bilirubin Negative Urine Urobilinogen Negative 05/24/17 05/25/17 05/25/17 05:25 06:20 06:20 WBC 6.8 Hgb 14.1 Sodium 136 Potassium 3.8 Chloride 100 Carbon Dioxide 28 Anion Gap 8 Creatinine 0.9 D 1.3 H D BUN 19 H D Urine Color Urine Appearance Urine pH Ur Specific [employer] Urine Protein Urine Glucose (UA) Urine Ketones Urine Blood Urine Nitrite Urine Bilirubin Urine Urobilinogen Imaging - Results Chest X-ray: Report Reviewed Cat Scan: Report Reviewed Ultrasound: Report Reviewed (morphologicaly normal kidneys) Problem List - Problems (1) ARF (acute renal failure) Code(s): N17.9 - ACUTE KIDNEY FAILURE, UNSPECIFIED (2) Abnormal uterine bleeding (AUB) Code(s): N93.9 - ABNORMAL UTERINE AND VAGINAL BLEEDING, UNSPECIFIED (3) Anemia Code(s): D64.9 - ANEMIA, UNSPECIFIED (4) Asthma Code(s): J45.909 - UNSPECIFIED ASTHMA, UNCOMPLICATED (5) Chest pain Code(s): R07.9 - CHEST PAIN, UNSPECIFIED Qualifiers: Chest pain type: other chest pain Qualified Code(s): R07.89 - Other chest pain; R07.89 - Other chest pain; R07.8 - Other chest pain (6) Diabetes Code(s): E11.9 - TYPE 2 DIABETES MELLITUS WITHOUT COMPLICATIONS (7) HLD (hyperlipidemia) Code(s): E78.5 - HYPERLIPIDEMIA, UNSPECIFIED (8) HTN (hypertension) Code(s): I10 - ESSENTIAL (PRIMARY) HYPERTENSION Assessment/Plan Impression 1. azotemia 2. chest pain 3. abnormal stress test 4. HTN 5. DM 6. fibroids 7. proteinuria Plan - pt is being transferred to [facility] for further workup - will need to repeat ua after bleeding improves - pt will need further renal workup - will need to optimize renal function - no new labs from today - discussed plan with pt Dr Herrera
--- NOTE | 2017-05-27 01:40 | DS ---
Physical Examination Vital Signs: Vital Signs Temperature 98.6 F 05/26/17 10:00 Pulse Rate 78 05/26/17 10:00 Respiratory Rate 20 05/26/17 10:00 Blood Pressure 151/90 05/26/17 10:00 O2 Sat by Pulse Oximetry (%) 100 05/26/17 09:00 Labs: CBC, BMP 05/25/17 06:20 05/25/17 06:20 Discharge Summary Reason For Visit: CHEST PAIN Condition: Good - Instructions Referrals: Florentino Sauceda MD [Primary Care Provider] - Disposition: TRANSFER ACUTE CARE/OTHER HOSP - Home Medications Comprehensive Discharge Medication List: Ambulatory Orders Albuterol Sulfate [Proair Hfa] 1 inh PO DAILY 01/15/13 Budesonide/Formoterol Fumarate [Symbicort 160-4.5 Mcg Inhaler] 10.2 gm IH DAILY 01/15/13 Hydralazine HCl 75 mg PO BID 01/15/13 Montelukast Na [Singulair] 10 mg PO HS 01/15/13 Nifedipine [Procardia Xl] 90 mg PO DAILY 01/15/13 Aspirin [Aspirin EC] 1 tab PO DAILY 04/14/16 Atorvastatin Ca [Lipitor] 20 mg PO DAILY 04/14/16 Furosemide [Lasix -] 20 mg PO BID 04/14/16 Losartan Potassium [Cozaar] 100 mg PO DAILY 04/14/16 Metoprolol Succinate [Toprol Xl] 100 mg PO DAILY 04/14/16 Sitagliptin Phos/Metformin HCl [Janumet 50-1,000 mg Tablet] 1 each PO BID Baclofen 10 mg PO DAILY 05/24/17 Medroxyprogesterone Acetate 10 mg PO DAILY 05/24/17 Novolog Mix 70-30 Flexpen Syrn 30 units SQ BIDAC 05/24/17
== END 2017-05-26 14:54 | disposition short-term general hospital (02) ==
LOC: JER 15:23 → JERBED 18:18 → J4W 22:39 → OBSVTOIN 05-24 02:38 → INTOOBSV 05-24 02:38
PROVIDERS: ADMIT Internal Medicine; ATTEND Internal Medicine
PROC: 3E033GC Introduction of Other Therapeutic Substance into Peripheral Vein, Percutaneous Approach (ICD-10-PCS; principal; 2017-05-23)
PROC: 3E013GC Introduction of Other Therapeutic Substance into Subcutaneous Tissue, Percutaneous Approach (ICD-10-PCS; 2017-05-23)
DX: R07.89 Other chest pain (principal); I11.9 Hypertensive heart disease without heart failure; E78.5 Hyperlipidemia, unspecified; E11.9 Type 2 diabetes mellitus without complications; I50.32 Chronic diastolic (congestive) heart failure; G47.33 Obstructive sleep apnea (adult) (pediatric); J45.909 Unspecified asthma, uncomplicated; D64.9 Anemia, unspecified; D21.9 Benign neoplasm of connective and other soft tissue, unspecified; N93.9 Abnormal uterine and vaginal bleeding, unspecified; E66.01 Morbid (severe) obesity due to excess calories; N17.9 Acute kidney failure, unspecified; Z68.28 Body mass index [BMI] 28.0-28.9, adult; Z88.0 Allergy status to penicillin; Z79.4 Long term (current) use of insulin; Z79.82 Long term (current) use of aspirin; Z79.84 Long term (current) use of oral hypoglycemic drugs
CPT/HCPCS: 36415; 70450-TC; 71010-TC; 76775-TC; 78452-TC; 80053; 80061; 81003; 81015; 82009; 83036; 83721; 84443; 84484; 84702; 85025; 93005; 93010; 93017; 93306-TC; 96372; 96374; 96375; 99283-25; A9502; G0378; J1644

== ENCOUNTER 2017-07-29 19:54 | Emergency (ER) | payer MEDICARE ==
[2017-07-29 20:00] VITALS: TEMP 98.7; BMI 39.6
--- NOTE | 2017-07-29 20:01 | PDOC ---
Rapid Medical Evaluation Medical Evaluation: Allergies Allergy/AdvReac Type Severity Reaction Status Date / Time Penicillins Allergy Rash Verified 05/23/17 15:32 07/29/17 19:55 I have performed a brief in-person evaluation of this patient. The patient presents with a chief complaint of: hx HTN, IDDM, fatigue/nausea x 2 days, denies fever, chills, nausea, vomiting Pertinent physical exam findings: lethargic I have ordered the following: EKG, CBC, CMP, acetone, lactic acid, UA, Ucx, Upreg The patient will proceed to the ED for further evaluation.
[2017-07-29 20:34] LABS: BASOPHIL 0.8 % (0-2.0); EOSINOPHIL 2.5 % (0-4.5); MCH 26.2 pg (25.7-33.7); MCHC 33.8 g/dl (32.0-36.0); MEAN CELL VOLUME 77.7 fl (80-96); NEUTROPHILS 47.2 % (42.8-82.8); PLATELET COUNT 286 K/MM3 (134-434); RDW 15.4 % (11.6-15.6); WHITE BLOOD COUNT 5.2 K/mm3 (4.0-10.0)
[2017-07-29 21:04] LABS: ALBUMIN 3.2 g/dl (3.4-5.0); ALK PHOS 109 U/L (45-117); ANION GAP 6 (8-16); BILIRUBIN,TOTAL 0.4 mg/dL (0.2-1.0); CALCIUM 8.8 mg/dL (8.5-10.1); CO2 33 mmol/L (21-32); CREATININE 1.3 mg/dL (0.55-1.02); GLUCOSE,RANDOM 226 mg/dL (74-106); SGOT/AST 6 U/L (15-37); SGPT/ALT 17 U/L (12-78); TOT PROT 7.5 g/dl (6.4-8.2)
[2017-07-29 21:11] LABS: CPK 95 IU/L (26-192); TROPONIN I < 0.02 ng/ml (0.00-0.05)
[2017-07-29 21:11] LABS: URINE APPEARANCE SLCLOUDY; URINE BILIRUBIN NEGATIVE (NEGATIVE); URINE BLOOD NEGATIVE (NEGATIVE); URINE COLOR LTYELLOW; URINE GLUCOSE (UA) 3+ (NEGATIVE); URINE KETONE NEGATIVE (NEGATIVE); URINE LEUK ESTERASE TRACE (NEGATIVE); URINE NITRITE NEGATIVE (NEGATIVE); URINE PROTEIN 2+ (NEGATIVE)
--- NOTE | 2017-07-29 21:15 | PDOC ---
History of Present Illness <Amy Juarez - Last Filed: 07/30/17 02:11> - General History Source: Patient - History of Present Illness Initial Comments: 07/29/17 21:14 Patient is a 47 y.o. female with a PMH of HTN, CHF, LAYNE, IDDM who presents to the ED c/o 2 day h/o lethargy and weakness. Patient denies fevers, chills, chest pain, shortness of breath, nausea, vomiting, constipation or diarrhea. Patient also c/o of chronic back pain that she states has been exacerbated over the last 2-3 days without any identifiable trauma or over-exertion. Patient denies any bowel or bladder incontinence, numbness, tingling or difficulty ambulating. <Josefa Mendez - Last Filed: 07/30/17 04:11> - General Chief Complaint: Weakness Stated Complaint: FATIGUE Time Seen by Provider: 07/29/17 20:02 Past History <Amy Juarez - Last Filed: 07/30/17 02:11> - Past Medical History Anemia: Yes (FIBROIDS) Asthma: Yes Cancer: No Cardiac Disorders: No CVA: No COPD: No CHF: No Dementia: No Diabetes: Yes GI Disorders: No Disorders: No HTN: Yes Hypercholesterolemia: No Liver Disease: No Seizures: No Thyroid Disease: No - Immunization History Immunization Up to Date: Yes - Suicide/Smoking/Psychosocial Hx Smoking Status: No Smoking History: Never smoked Have you smoked in the past 12 months: No Number of Cigarettes Smoked Daily: 0 Information on smoking cessation initiated: No Hx Alcohol Use: No Drug/Substance Use Hx: No Substance Use Type: None Hx Substance Use Treatment: No <Josefa Mendez - Last Filed: 07/30/17 04:11> - Past Medical History Allergies/Adverse Reactions: Allergies Allergy/AdvReac Type Severity Reaction Status Date / Time Penicillins Allergy Rash Verified 07/29/17 20:01 Home Medications: Ambulatory Orders Albuterol Sulfate [Proair Hfa] 1 inh PO DAILY 01/15/13 Budesonide/Formoterol Fumarate [Symbicort 160-4.5 Mcg Inhaler] 10.2 gm IH DAILY 01/15/13 Hydralazine HCl 75 mg PO BID 01/15/13 Montelukast Na [Singulair] 10 mg PO HS 01/15/13 Nifedipine [Procardia Xl] 90 mg PO DAILY 01/15/13 Aspirin [Aspirin EC] 1 tab PO DAILY 04/14/16 Atorvastatin Ca [Lipitor] 20 mg PO DAILY 04/14/16 Furosemide [Lasix -] 20 mg PO BID 04/14/16 Losartan Potassium [Cozaar] 100 mg PO DAILY 04/14/16 Metoprolol Succinate [Toprol Xl] 100 mg PO DAILY 04/14/16 Sitagliptin Phos/Metformin HCl [Janumet 50-1,000 mg Tablet] 1 each PO BID Baclofen 10 mg PO DAILY 05/24/17 Medroxyprogesterone Acetate 10 mg PO DAILY 05/24/17 Novolog Mix 70-30 Flexpen Syrn 30 units SQ BIDAC 05/24/17 Review of Systems - Review of Systems Constitutional: Yes: Malaise. No: Chills, Fever Respiratory: No: Shortness of Breath Cardiac (ROS): No: Chest Pain : No: Burning, Dysuria All Other Systems: Reviewed and Negative <Josefa Mendez - Last Filed: 07/30/17 04:11> *Physical Exam - Vital Signs Last Vital Signs Temp Pulse Resp BP Pulse Ox 98.7 F 68 18 187/102 97 07/29/17 19:57 07/30/17 01:59 07/30/17 01:59 07/30/17 01:59 07/30/17 01:59 <Amy Juarez - Last Filed: 07/30/17 02:11> - Vital Signs Last Vital Signs Temp Pulse Resp BP Pulse Ox 98.7 F 69 18 242/108 97 07/29/17 19:57 07/29/17 19:57 07/29/17 19:57 07/29/17 19:57 07/29/17 19:57 - Physical Exam General Appearance: Yes: Nourished, Obese Neck: positive: Trachea midline, Supple. negative: Lymphadenopathy (R), Lymphadenopathy (L) Respiratory/Chest: positive: Lungs Clear. negative: Accessory Muscle Use, Labored Respiration, Rales, Rhonchi, Stridor, Wheezing Cardiovascular: positive: S1, S2. negative: Edema, JVD Gastrointestinal/Abdominal: positive: Soft. negative: Distended, Guarding, Rebound, Tenderness, Hernia Musculoskeletal: negative: CVA Tenderness (R), CVA Tenderness (L) Extremity: positive: Normal Capillary Refill, Normal Inspection, Normal Range of Motion Integumentary: positive: Normal Color, Dry, Warm Neurologic: positive: bid clerk II-XII NML intact, Fully Oriented, Alert <Josefa Mendez - Last Filed: 07/30/17 04:11> ED Treatment Course - LABORATORY CBC & Chemistry Diagram: 07/29/17 20:00 07/29/17 20:00 - ADDITIONAL ORDERS Additional order review: Laboratory Results 07/29/17 07/29/17 07/29/17 20:50 20:00 20:00 Sodium Potassium Chloride Carbon Dioxide Anion Gap BUN Creatinine Creat Clearance w eGFR Random Glucose Lactic Acid Calcium Total Bilirubin AST ALT Alkaline Phosphatase Creatine Kinase 95 Troponin I < 0.02 Total Protein Albumin Urine Color Ltyellow Urine Appearance Slcloudy Urine pH 7.0 Ur Specific [place] 1.011 Urine Protein 2+ H Urine Glucose (UA) 3+ H Urine Ketones Negative Urine Blood Negative Urine Nitrite Negative Urine Bilirubin Negative Urine Urobilinogen 2.0 H Urine WBC (Auto) 3 Urine RBC (Auto) 1 Ur Epithelial Cells Moderate Urine Bacteria Rare Urine Mucus Rare Urine HCG, Qual Negative Acetone, Qual Negative L 07/29/17 07/29/17 20:00 20:00 Sodium 140 Potassium 3.0 L D Chloride 101 Carbon Dioxide 33 H Anion Gap 6 L BUN 12 D Creatinine 1.3 H Creat Clearance w eGFR 43.54 Random Glucose 226 H D Lactic Acid 1.4 Calcium 8.8 Total Bilirubin 0.4 AST 6 L D ALT 17 Alkaline Phosphatase 109 Creatine Kinase Troponin I Total Protein 7.5 Albumin 3.2 L Urine Color Urine Appearance Urine pH Ur Specific [place] Urine Protein Urine Glucose (UA) Urine Ketones Urine Blood Urine Nitrite Urine Bilirubin Urine Urobilinogen Urine WBC (Auto) Urine RBC (Auto) Ur Epithelial Cells Urine Bacteria Urine Mucus Urine HCG, Qual Acetone, Qual 07/29/17 20:00 RBC 5.15 MCV 77.7 L MCHC 33.8 RDW 15.4 D MPV 8.0 Neutrophils % 47.2 D Lymphocytes % 35.5 D Monocytes % 14.0 H Eosinophils % 2.5 Basophils % 0.8 - RADIOLOGY Radiology Studies Ordered: Category Date Time Status CHEST X-RAY PORTABLE* [RAD] Stat Radiology 07/30/17 01:28 Ordered - Medications Given in the ED: ED Medications Discontinued Medications Generic Name Dose Route Start Last Admin Trade Name Unique PRN Reason Stop Dose Admin Furosemide 20 mg 07/29/17 21:39 07/29/17 22:17 Lasix - PO 07/29/17 21:40 20 mg ONCE ONE Administration Losartan Potassium 100 mg 07/29/17 21:36 07/29/17 22:17 Cozaar - PO 07/29/17 21:37 100 mg ONCE ONE Administration Metoprolol Succinate 100 mg 07/29/17 21:38 07/29/17 22:17 Toprol Xl - PO 07/29/17 21:39 100 mg ONCE ONE Administration Nifedipine 90 mg 07/29/17 21:30 07/29/17 22:07 Procardia Xl - PO Not Given DAILY LYNETTE Nifedipine 90 mg 07/29/17 21:45 07/29/17 22:17 Procardia Xl - PO 07/29/17 21:46 90 mg ONCE ONE Administration Oxycodone/Acetaminophen 1 combo 07/29/17 23:51 07/30/17 00:10 Percocet 5/325 - PO 07/29/17 23:52 1 combo ONCE ONE Administration Potassium Chloride 40 meq 07/29/17 21:22 07/29/17 22:17 K-Dur - PO 07/29/17 21:23 40 meq ONCE ONE Administration Sitagliptin Phosphate 100 mg 07/29/17 21:37 07/29/17 22:17 Januvia - PO 07/29/17 21:38 100 mg ONCE ONE Administration <Amy Juarez - Last Filed: 07/30/17 02:11> - LABORATORY CBC & Chemistry Diagram: 07/29/17 20:00 07/29/17 20:00 - ADDITIONAL ORDERS Additional order review: Laboratory Results 07/29/17 07/29/17 07/29/17 20:50 20:00 20:00 Sodium Potassium Chloride Carbon Dioxide Anion Gap BUN Creatinine Creat Clearance w eGFR Random Glucose Lactic Acid Calcium Total Bilirubin AST ALT Alkaline Phosphatase Creatine Kinase 95 Troponin I < 0.02 Total Protein Albumin Urine Color Ltyellow Urine Appearance Slcloudy Urine pH 7.0 Ur Specific [place] 1.011 Urine Protein 2+ H Urine Glucose (UA) 3+ H Urine Ketones Negative Urine Blood Negative Urine Nitrite Negative Urine Bilirubin Negative Urine Urobilinogen 2.0 H Urine HCG, Qual Negative Acetone, Qual Negative L 07/29/17 07/29/17 20:00 20:00 Sodium 140 Potassium 3.0 L D Chloride 101 Carbon Dioxide 33 H Anion Gap 6 L BUN 12 D Creatinine 1.3 H Creat Clearance w eGFR 43.54 Random Glucose 226 H D Lactic Acid 1.4 Calcium 8.8 Total Bilirubin 0.4 AST 6 L D ALT 17 Alkaline Phosphatase 109 Creatine Kinase Troponin I Total Protein 7.5 Albumin 3.2 L Urine Color Urine Appearance Urine pH Ur Specific [place] Urine Protein Urine Glucose (UA) Urine Ketones Urine Blood Urine Nitrite Urine Bilirubin Urine Urobilinogen Urine HCG, Qual Acetone, Qual 07/29/17 20:00 RBC 5.15 MCV 77.7 L MCHC 33.8 RDW 15.4 D MPV 8.0 Neutrophils % 47.2 D Lymphocytes % 35.5 D Monocytes % 14.0 H Eosinophils % 2.5 Basophils % 0.8 <Josefa Mendez - Last Filed: 07/30/17 04:11> Medical Decision Making - Medical Decision Making 07/29/17 23:52 Patient is a 47 y.o. female who presents with a c/o 2 day h/o lethargy without MS change. VS significant for elevated BP 250's/100's On PE patient is A&O x4 , moving all extremities, ambulatory with no neurological deficits noted. Patient also c/o back pain. PLAN: 1. OTD of home BP medications 2. L/T/S imaging reasess 07/30/17 04:07 Spinal images negative for acute fracture or dislocation. Wet read of CXR shows normal cardiac silhouette, no increased pulmonary vasculature marking, no consolidation or infiltrate. Patient's BP improved to 170/82 (initial SPB 240's ). Patient denies any headache, chest pain, visual changes. Patient discharged home with extensive counseling to adhere to BP medication regimen. <Josefa Mendez - Last Filed: 07/30/17 04:11> *DC/Admit/Observation/Transfer <Amy Juarez - Last Filed: 07/30/17 02:11> <Josefa Mendez - Last Filed: 07/30/17 04:11> Diagnosis at time of Disposition: Hypertension, Viral URI - Discharge Dispostion Disposition: HOME Condition at time of disposition: Improved - Referrals Referrals: Florentino Rodriguez MD [Staff Physician] - - Patient Instructions Printed Discharge Instructions: Hypertension (Alternative Therapy) Additional Instructions: you need to take your blood pressure medication daily. follow up with dr. rodriguez for repeat evaluation within 3 - 5 days. return for any problems or concerns. you can take ibuprofen 600 mg every 8 hours as needed for pain.
[2017-07-29 21:22] LABS: URINE BACTERIA RARE /hpf (NONE SEEN); URINE MUCUS RARE; URINE RBC 1 /hpf (0-3); URINE WBC 3 /hpf (3-5)
[2017-07-29] MEDS ORDERED: POTASSIUM CHLORIDE TABS 20 MEQ TABLET.ER (FP) PO ONE ×2 (21:22→22:10)
[2017-07-29] MEDS ORDERED: NIFEdipine E.R. 90 MG TABLET (FP) PO SCH (21:30)
[2017-07-29] MEDS ORDERED: LOSARTAN POTASSIUM 50 MG TABLET (FP) PO ONE (21:36)
[2017-07-29] MEDS ORDERED: sitaGLIPtin PHOSPHATE 100 MG TABLET (FP) PO ONE (21:37)
[2017-07-29] MEDS ORDERED: METOPROLOL SUCCINATE 100 MG TAB.SR.24H (FP) PO ONE (21:38)
[2017-07-29] MEDS ORDERED: FUROSEMIDE 20 MG TABLET (FP) PO ONE (21:39)
[2017-07-29] MEDS ORDERED: NIFEdipine E.R. 90 MG TABLET (FP) PO ONE (21:45)
--- NOTE | 2017-07-30 01:49 | PDOC ---
Attending Attestation - Resident Resident Name: Josefa Mendez - ED Attending Attestation I have performed the following: I have examined & evaluated the patient, The case was reviewed & discussed with the resident, I agree w/resident's findings & plan, Exceptions are as noted - HPI HPI: 07/30/17 01:46 47-year-old female with a history of hypertension diabetes here today complaining of generalized weakness fatigue. Patient states she did not take her blood pressure medications however usually takes them denies any fevers or chills weakness is nonfocal no chest pain no shortness of breath no leg swelling also complaining of low back pain which is worse with movement and going from a lying to sitting position denies any new focal weakness in her legs no bowel or bladder incontinence no sensory changes no changes to her vision - Physicial Exam PE: 07/30/17 01:47 Awake alert no acute distress bases are symmetric lungs are clear bilaterally heart is regular without any murmurs rubs or gallops abdomen is soft and nontender no pulsatile mass back is noted for lumbosacral muscle spasm no midline spinal tenderness. Strength is 5 out of 5 in all 4 extremities sensation is intact to bilateral lower extremities speech is clear and nerves are intact - Medical Decision Making 07/30/17 01:48 47-year-old female with hypertension we did not take her meds today complaining of reproducible low back pain and generalized fatigue Differential includes hypertensive emergency renal failure anemia likely abnormality symptoms of hypertension plan CBC lytes chest x-ray x-ray of LS- spine EKG we'll give patient her home BP meds that she did not take them today and reassessment Heart Score/ECG Review #1 General ECG Interpretation: Sinus Rhythm, Normal Rate, Normal Intervals, No acute ischemic changes
[2017-07-30 01:59] VITALS: PULSE 68
[2017-07-30 04:08] VITALS: BP 170/82
--- NOTE | 2017-07-30 11:35 | EKG ---
Test Reason : Blood Pressure : / mmHG Vent. Rate : 065 BPM Atrial Rate : 065 BPM P-R Int : 154 ms QRS Dur : 086 ms QT Int : 444 ms P-R-T Axes : 049 017 021 degrees QTc Int : 461 ms NORMAL SINUS RHYTHM POSSIBLE LEFT ATRIAL ENLARGEMENT POSSIBLE ANTERIOR INFARCT , AGE UNDETERMINED ABNORMAL ECG WHEN COMPARED WITH ECG OF 24-MAY-2017 10:11, NO SIGNIFICANT CHANGE WAS FOUND Confirmed by BINA BALLARD, QUYEN ([id number]) on 07/30/2017 11:35:13 AM Referred By: Confirmed By:QUYEN CURRAN MD
[2017-07-30 12:13] LABS: URINE LEUK ESTERASE Negative (NEGATIVE)
== END 2017-07-30 05:04 | disposition home or self-care (01) ==
LOC: JER 19:54
DX: I10 Essential (primary) hypertension (principal); J06.9 Acute upper respiratory infection, unspecified; E10.9 Type 1 diabetes mellitus without complications; Z79.4 Long term (current) use of insulin; I20.1 Angina pectoris with documented spasm; G47.33 Obstructive sleep apnea (adult) (pediatric)
CPT/HCPCS: 36415; 71010-TC; 72070-TC; 72100-TC; 80053; 81003; 81015; 82009; 82550; 83605; 84484; 84703; 85025; 87086; 93005; 93010; 99283-25

== ENCOUNTER → 2019-05-03 | Day surgery (SDC) | payer OTHER | LOC: JRADIR 08:53 ==

== ENCOUNTER 2020-02-24 04:28 | Emergency (ER) | payer OTHER ==
[2020-02-24 05:02] VITALS: BMI 37.1
--- NOTE | 2020-02-24 05:03 | PDOC ---
History of Present Illness - General Chief Complaint: Headache Stated Complaint: HEADACHE,DIZZINESS Time Seen by Provider: 02/24/20 04:38 - History of Present Illness Initial Comments: Mel Gotti is a 49 y/o female with PMH significant for HTN and DM, presenting today with headache and vertigo that started yesterday night. Reports that she has had vertigo in the past before. Reports feeling very fatigued. No fever/chills. No nausea/vomiting. No vision changes. No neck pain. No chest pain/shortness of breath. No abdominal pain. No leg swelling. No diarrhea/dysuria. No recent falls. Past History - Medical History Allergies/Adverse Reactions: Allergies Allergy/AdvReac Type Severity Reaction Status Date / Time Penicillins Allergy Rash Verified 02/24/20 04:52 Home Medications: Ambulatory Orders Albuterol Sulfate [Proair Hfa] 1 inh PO DAILY 01/15/13 Budesonide/Formoterol Fumarate [Symbicort 160-4.5 Mcg Inhaler] 10.2 gm IH DAILY 01/15/13 Hydralazine HCl 75 mg PO BID 01/15/13 Montelukast Na [Singulair] 10 mg PO HS 01/15/13 Nifedipine [Procardia Xl] 90 mg PO DAILY 01/15/13 Aspirin [Aspirin EC] 1 tab PO DAILY 04/14/16 Atorvastatin Ca [Lipitor] 20 mg PO DAILY 04/14/16 Furosemide [Lasix -] 20 mg PO BID 04/14/16 Losartan Potassium [Cozaar] 100 mg PO DAILY 04/14/16 Metoprolol Succinate [Toprol Xl] 100 mg PO DAILY 04/14/16 Sitagliptin Phos/Metformin HCl [Janumet 50-1,000 mg Tablet] 1 each PO BID Baclofen 10 mg PO DAILY 05/24/17 Medroxyprogesterone Acetate 10 mg PO DAILY 05/24/17 Novolog Mix 70-30 Flexpen Syrn 30 units SQ BIDAC 05/24/17 Anemia: Yes (FIBROIDS) Asthma: Yes Cancer: No Cardiac Disorders: No CVA: No COPD: No CHF: No Dementia: No Diabetes: Yes GI Disorders: No Disorders: No HTN: Yes Hypercholesterolemia: No Liver Disease: No Seizures: No Thyroid Disease: No - Immunization History Immunization Up to Date: Yes - Psycho-Social/Smoking History Smoking Status: No Smoking History: Never smoked Have you smoked in the past 12 months: No Number of Cigarettes Smoked Daily: 0 - Substance Abuse Hx (Audit-C & DAST Scrn) How often the patient has a drink containing alcohol: Never Score: In Men: 4 or > Positive; In Women: 3 or > Positive: 0 Screen Result (Pos requires Nsg. Audit-10AR): Negative In the last yr the pt used illegal drug/Rx for NonMed reason: No Score: Yes response is considered Positive: 0 Screen Result (Positive result requires Nsg. DAST-10): Negative Review of Systems - Review of Systems Comments:: GENERAL/CONSTITUTIONAL: No fever or chills. No weakness. Reports generalized fatigue. HEAD, EYES, EARS, NOSE AND THROAT: No change in vision. No change in hearing. No sore throat._ CARDIOVASCULAR: No chest pain or shortness of breath_ RESPIRATORY: Denies cough, hemoptysis_ GASTROINTESTINAL: No nausea, vomiting, diarrhea or constipation._ GENITOURINARY: No dysuria, frequency, or change in urination._ MUSCULOSKELETAL: No joint or muscle swelling or pain. No neck or back pain._ SKIN: No rash_ NEUROLOGIC: Reports headache and vertigo. No loss of consciousness, or change in strength/sensation._ ENDOCRINE: No increased thirst. No abnormal weight change_ HEMATOLOGIC/LYMPHATIC: No anemia, easy bleeding, or history of blood clots._ ALLERGIC/IMMUNOLOGIC: No hives or skin allergy._ *Physical Exam - Vital Signs Last Vital Signs Temp Pulse Resp BP Pulse Ox 99.1 F 94 H 18 166/86 98 02/24/20 04:51 02/24/20 04:51 02/24/20 04:51 02/24/20 04:51 02/24/20 04:51 - Physical Exam GENERAL: Awake, sleepy, and oriented to person/place/time, in no acute distress_ HEAD: No signs of trauma, normocephalic, atraumatic _ EYES: PERRLA, EOMI, sclera anicteric, conjunctiva clear. No nystagmus on far lateral gaze. ENT: Hearing grossly normal, nares patent, oropharynx clear without exudates. No uvular deviation. Moist mucosa_ NECK: Normal ROM, supple, no lymphadenopathy, JVD, or masses_ LUNGS: No distress, speaks in full sentences, clear to auscultation bilaterally _ HEART: Regular rate and rhythm, normal S1 and S2, no murmurs appreciated, peripheral pulses normal and equal bilaterally._ ABDOMEN: Soft, obese, nontender, normoactive bowel sounds. No guarding, no rebound. No masses_ EXTREMITIES: Normal inspection, Normal range of motion, no edema. No clubbing or cyanosis_ NEUROLOGICAL: CN II-XII tested and intact. Sensation intact to sharp/dull differentiation in all extremities. Motor: Normal tone and bulk. No abnormal movements appreciated. No pronator drift. Strength tested and 5/5 in bilateral wrist flexion/extension, elbow flexion/extension, shoulder abduction, straight leg raise, knee flexion/extension, ankle dorsiflexion/plantarflexion. Coordination: Finger to nose and heel to cassidy testing intact bilaterally. Romberg's negative. Mild imbalance on ambulation. SKIN: Warm, Dry, normal turgor, no rashes or lesions noted_ ED Treatment Course - LABORATORY CBC & Chemistry Diagram: 02/24/20 06:31 02/24/20 06:31 Medical Decision Making - Medical Decision Making 02/24/20 05:03 49F presenting with headache, vertigo, and fatigue. Has had prior episodes of vertigo, but not on any meds for this. Will give fluids, tylenol, meclizine, reassess. 02/24/20 06:38 Laboratory Last Values POC Glucometer 288 UNITS (80-120) 02/24/20 06:15 Pt reassessed. Slight imbalance on ambulation. Will draw basic labs, coags, and obtain CT head. 02/24/20 07:00 Pt s/o to Dr. Deshpande for further work up. Discharge - Discharge Information Problems reviewed: Yes Clinical Impression/Diagnosis: Headache Qualifiers: Headache type: unspecified Headache chronicity pattern: unspecified pattern Intractability: not intractable Qualified Code(s): R51 - Headache Condition: Improved Disposition: HOME - Admission No - Follow up/Referral Referrals: Florentino Sauceda MD [Staff Physician] - - Patient Discharge Instructions Patient Printed Discharge Instructions: DI for Vertigo, DI for Headache Additional Instructions: Please make a follow up appointment with your PCP (Dr. Sauceda) on Thursday by walkin for medication adjustment. Please continue taking your medications as prescribed. If you experience any new, worsening, or concerning symptoms, including worsening headache, fever, vision changes, nausea/vomiting, chest pain, shortness of breath, leg swelling, or any other concerns please return to the emergency department. - Post Discharge Activity
[2020-02-24] MEDS ORDERED: MECLIZINE HCL 25 MG TABLET (FP) PO ONE (05:14)
[2020-02-24] MEDS ORDERED: ACETAMINOPHEN 1000 MG/100 ML VIAL (NON FORMULARY) IVPB ONE (05:14)
[2020-02-24] MEDS ORDERED: SODIUM CHLORIDE 0.9% 500 ML INFUS.BAG IV ONE (05:14)
--- NOTE | 2020-02-24 05:18 | PDOC ---
Attending Attestation - Resident Resident Name: Drake Weathers - ED Attending Attestation I have performed the following: I have examined & evaluated the patient, The case was reviewed & discussed with the resident, I agree w/resident's findings & plan, Exceptions are as noted - HPI HPI: 02/24/20 07:43 49F pmh DM, HTN, HLD, BPPV here with frontal headache and dizziness for a day. MUNGUIA is frontal, gradual onset, non-exertional. Dizziness is positional and worsened by standing. Pt states that she self dc'ed her htn medications about 3 months ago b/c she felt it was triggering her vertigo. This past week she noted her blood pressure slowly progressing past her baseline with a max of 210 systolic. She restarted her antihypertensive medications. Symptoms have been persistent since. No f/c, n/v, sob, cp, cough. - Physicial Exam PE: 02/24/20 07:47 Agree with documented exam - Medical Decision Making 02/24/20 07:47 MUNGUIA, dizziness likely 2/2 restarting her antihypertensives, consider bppv, less likely cva, ich meclizine, tylenol, re-eval f/u labs, ct b, ekg dispo per clinical course if symptoms resolve, labs are unremarkable, imaging w/o acute pathology, would consider discharge Dizziness improved, still c/o headache Walked to bathroom with slow, steady, gait with normal base analgesia, f/u labs, ekg, cxr signed out to day team, dispo per clinical course Discharge - Discharge Information Problems reviewed: Yes Clinical Impression/Diagnosis: Headache Qualifiers: Headache type: unspecified Headache chronicity pattern: unspecified pattern Intractability: not intractable Qualified Code(s): R51 - Headache Condition: Improved Disposition: HOME - Follow up/Referral Referrals: Florentino Sauceda MD [Staff Physician] - - Patient Discharge Instructions Patient Printed Discharge Instructions: DI for Vertigo, DI for Headache Additional Instructions: Please make a follow up appointment with your PCP (Dr. Sauceda) on Thursday by walkin for medication adjustment. Please continue taking your medications as prescribed. If you experience any new, worsening, or concerning symptoms, including worsening headache, fever, vision changes, nausea/vomiting, chest pain, shortness of breath, leg swelling, or any other concerns please return to the emergency department. - Post Discharge Activity
[2020-02-24] MEDS ORDERED: MECLIZINE HCL 25 MG TABLET (FP) ONE (05:21)
[2020-02-24] MEDS ORDERED: ACETAMINOPHEN INJECTION 100 ML IVPB ONE (05:22)
[2020-02-24] MEDS ORDERED: INSULIN (NOVOLOG MIX 70/30) 100 UNITS/ML MDV SQ ONE (06:25)
[2020-02-24] MEDS ORDERED: METOCLOPRAMIDE HCL INJECTION 10 MG/2 ML VIAL IVPUSH ONE (06:36)
[2020-02-24] MEDS ORDERED: METOCLOPRAMIDE HCL INJECTION 10 MG/2 ML VIAL ONE (06:41)
[2020-02-24 06:48] LABS: BASO % 0.6 % (0-2.0); EOS % 1.2 % (0-4.5); HEMATOCRIT 41.6 % (32.4-45.2); HEMOGLOBIN 13.4 GM/dL (10.7-15.3); LYMPH % 9.3 % (8-40); MCH 24.3 pg (25.7-33.7); MCHC 32.1 g/dl (32.0-36.0); MEAN CELL VOLUME 75.6 fl (80-96); MEAN PLT VOLUME 9.1 fl (7.5-11.1); MONO % 8.3 % (3.8-10.2); NEUT % 80.6 % (42.8-82.8); PLATELET COUNT 371 K/MM3 (134-434); RBC 5.51 M/mm3 (3.60-5.2); RDW 16.7 % (11.6-15.6); WHITE BLOOD COUNT 8.1 K/mm3 (4.0-10.0)
[2020-02-24 06:55] LABS: INR 0.92 (0.83-1.09); PROTHROMBIN TIME (PATIENT) 10.8 SEC (9.7-13.0)
[2020-02-24 06:58] LABS: ACTIVATED PTT 33.9 SECONDS (25.2-36.5)
--- NOTE | 2020-02-24 07:02 | PDOC ---
*Physical Exam - Vital Signs Last Vital Signs Temp Pulse Resp BP Pulse Ox 99.1 F 94 H 18 166/86 98 02/24/20 04:51 02/24/20 04:51 02/24/20 04:51 02/24/20 04:51 02/24/20 04:51 02/24/20 09:43 BP 166/86, SpO2 98 , HR 94, RR 18 - Physical Exam General Appearance: Yes: Nourished Respiratory/Chest: positive: Lungs Clear, Normal Breath Sounds Cardiovascular: positive: Regular Rhythm, Regular Rate, S1, S2 Gastrointestinal/Abdominal: positive: Normal Bowel Sounds, Soft Musculoskeletal: positive: Normal Inspection Extremity: positive: Normal Capillary Refill, Normal Inspection, Normal Range of Motion Integumentary: positive: Normal Color, Dry 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, Fully Oriented Heart Score/ECG Review - Electrocardiogram EKG: Normal - Age Age: 45-65 - ECG Intrepretation Rhythm: Regular Rhythm - [place]: Normal - ECG Impressions Normal ECG: Yes ED Treatment Course - LABORATORY CBC & Chemistry Diagram: 02/24/20 06:31 02/24/20 06:31 - ADDITIONAL ORDERS Additional order review: Laboratory Results 02/24/20 02/24/20 06:31 06:15 PT with INR 10.80 INR 0.92 PTT (Actin FS) 33.9 POC Glucometer 288 02/24/20 02/24/20 06:31 06:15 RBC 5.51 H MCV 75.6 L MCHC 32.1 RDW 16.7 H MPV 9.1 D Neutrophils % 80.6 D Lymphocytes % 9.3 D Monocytes % 8.3 Eosinophils % 1.2 Basophils % 0.6 POC Glucometer 288 - RADIOLOGY Chest X-Ray Result: No Infiltrates - Medications Given in the ED: ED Medications Discontinued Medications Generic Name Dose Route Start Last Admin Trade Name Freq PRN Reason Stop Dose Admin Acetaminophen 1,000 mg 02/24/20 05:14 02/24/20 05:34 Ofirmev Injection - IVPB 02/24/20 05:15 1,000 mg ONCE ONE Administration Diphenhydramine HCl 25 mg 02/24/20 06:36 02/24/20 06:47 Benadryl Injection - IVPUSH 02/24/20 06:37 25 mg ONCE ONE Administration Insulin Aspart 30 units 02/24/20 06:25 02/24/20 06:33 Novolog Mix 70/30 Vial SQ 02/24/20 06:26 30 unit ONCE ONE Administration Meclizine HCl 25 mg 02/24/20 05:14 02/24/20 05:34 Antivert - PO 02/24/20 05:15 25 mg ONCE ONE Administration Metoclopramide HCl 10 mg 02/24/20 06:36 02/24/20 06:47 Reglan Injection - IVPUSH 02/24/20 06:37 10 mg ONCE ONE Administration Sodium Chloride 1,000 ml 02/24/20 05:14 02/24/20 05:34 Normal Saline - IV 02/24/20 05:15 1,000 ml ONCE ONE Administration 02/24/20 09:47 Patient was given Tylenol, Bendaryl, meclizine, reglan, and 2 L of normal sali ne. - Consult/PCP Time Called: 09:15 Case Discussed with Personal Care Physician Not on Staff:: Dr. Carr was contacted. She was noticed of the case and her course in the ED. Dr. Carr is ok with her to be discharged and see on Thursday by walk in Medical Decision Making - Medical Decision Making 02/24/20 07:09 Patient received sign out from night team. 50F hx of HTN, DM presented with vertigo, lab result came back, waiting for EKG, chest Xray. 02/24/20 09:56 Patient feels better. Dizziness and headaches are resolved. Per imaging: Xray and CT scan came back negative. EKG came back negative. Labs came back with mild electrolyte abnormality. Blood sugar went from 260 to 216 after 2 U of insulin and 2 L of NS. PCP was contacted. Dr. Carr was comfortable with her going back home and see Dr. Ortiz on Thursday walk in for medication adjustment. Discharge - Discharge Information Problems reviewed: Yes Clinical Impression/Diagnosis: Headache Qualifiers: Headache type: unspecified Headache chronicity pattern: unspecified pattern Intractability: not intractable Qualified Code(s): R51 - Headache Condition: Improved Disposition: HOME - Follow up/Referral Referrals: Florentino Sauceda MD [Staff Physician] - - Patient Discharge Instructions Patient Printed Discharge Instructions: DI for Vertigo, DI for Headache Additional Instructions: Please make a follow up appointment with your PCP (Dr. Sauceda) on Thursday by walkin for medication adjustment. Please continue taking your medications as prescribed. If you experience any new, worsening, or concerning symptoms, including worsening headache, fever, vision changes, nausea/vomiting, chest pain, shortness of breath, leg swelling, or any other concerns please return to the emergency department. - Post Discharge Activity
[2020-02-24 07:19] LABS: ALBUMIN 3.3 g/dl (3.4-5.0); BILIRUBIN,TOTAL 0.4 mg/dL (0.2-1); BLOOD UREA NITROGEN 12.5 mg/dL (7-18); CALCIUM 9.2 mg/dL (8.5-10.1); CREATININE 1.5 mg/dL (0.55-1.3); POTASSIUM 3.5 mmol/L (3.5-5.1); TOT PROT 7.4 g/dl (6.4-8.2)
[2020-02-24] MEDS ORDERED: SODIUM CHLORIDE 1,000 ML IV STA (07:44)
[2020-02-24 10:24] VITALS: BP 155/87; PULSE 86; TEMP 98.9
--- NOTE | 2020-02-26 14:17 | EKG ---
Test Reason : Blood Pressure : / mmHG Vent. Rate : 094 BPM Atrial Rate : 094 BPM P-R Int : 162 ms QRS Dur : 086 ms QT Int : 376 ms P-R-T Axes : 042 015 024 degrees QTc Int : 470 ms NORMAL SINUS RHYTHM POSSIBLE LEFT ATRIAL ENLARGEMENT POSSIBLE ANTERIOR INFARCT (CITED ON OR BEFORE 29-JUL-2017) ABNORMAL ECG WHEN COMPARED WITH ECG OF 29-JUL-2017 21:13, T WAVE VARIATION Confirmed by BARBARA BALLARD, JANI ([id number]) on 02/26/2020 2:17:35 PM Referred By: Confirmed By:JANI JIMENEZ MD
== END 2020-02-24 10:28 | disposition home or self-care (01) ==
LOC: JER 04:28
PROC: 3E033GC Introduction of Other Therapeutic Substance into Peripheral Vein, Percutaneous Approach (ICD-10-PCS; principal; 2020-02-24)
PROC: 3E023GC Introduction of Other Therapeutic Substance into Muscle, Percutaneous Approach (ICD-10-PCS; principal; 2020-02-24)
PROC: 3E0337Z Introduction of Electrolytic and Water Balance Substance into Peripheral Vein, Percutaneous Approach (ICD-10-PCS; principal; 2020-02-24)
DX: R51 Headache (principal)
CPT/HCPCS: 36415; 70450-TC; 71045-TC-FY; 80053; 82962; 85025; 85610; 85730; 93005; 93010; 99285-25; J0131

== ENCOUNTER 2024-04-05 04:25 | Day surgery (SDC) | payer OTHER ==
[2024-04-01 12:32] VITALS: BMI 36.3
[2024-04-05 08:18] LABS: BASO % 0.9 % (0-2.0); HEMATOCRIT 35.3 % (32.4-45.2); HEMOGLOBIN 11.7 GM/dL (10.7-15.3); LYMPH % 29.7 % (8-40); MCH 26.3 pg (25.7-33.7); MCHC 33.1 g/dl (32.0-36.0); MEAN CELL VOLUME 79.3 fl (80-96); MEAN PLT VOLUME 7.3 fl (7.5-11.1); MONO % 9.9 % (3.8-10.2); NEUT % 56.5 % (42.8-82.8); PLATELET COUNT 403 10^3/uL (134-434); RBC 4.45 M/mm3 (3.60-5.2); RDW 14.8 % (11.6-15.6); WHITE BLOOD COUNT 6.7 K/mm3 (4.0-10.0)
[2024-04-05 08:27] LABS: INR 0.82 (0.83-1.09); PROTHROMBIN TIME (PATIENT) 9.5 SEC (9.7-13.0)
[2024-04-05] MEDS ORDERED: MIDAZOLAM HCL 2 MG/2 ML SINGLE DOSE VIAL ONE (10:53)
[2024-04-05] MEDS: SODIUM CHLORIDE 500 ML IV ONE (11:00)
[2024-04-05] MEDS: MIDAZOLAM HCL 2 MG/2 ML SINGLE DOSE VIAL IVPUSH ONE (11:14)
[2024-04-05] MEDS: FENTANYL CITRATE/PF 50 MCG/ML VIAL IVPUSH ONE (11:14)
[2024-04-05 12:34] VITALS: RESP 20
[2024-04-05 15:10] VITALS: PULSE 74
[2024-04-05 15:40] VITALS: BP 144/79; TEMP 97.3
== END 2024-04-05 15:35 | disposition home or self-care (01) ==
LOC: JRADIR 04:25
PROVIDERS: ATTEND Internal Medicine
PROC: 0TB03ZX Excision of Right Kidney, Percutaneous Approach, Diagnostic (ICD-10-PCS; principal; 2024-04-05)
DX: I12.9 Hypertensive chronic kidney disease with stage 1 through stage 4 chronic kidney disease, or unspecified chronic kidney disease (principal); E11.22 Type 2 diabetes mellitus with diabetic chronic kidney disease; N18.9 Chronic kidney disease, unspecified
CPT/HCPCS: 36415; 50200; 76775-TC; 82962; 85025; 85610; 88300-TC